=== PATIENT | female | born 1940 | race American Indian/Alaskan Native ===

== ENCOUNTER 2019-12-25 10:05 | Outpatient (CLI) | payer MEDICARE ==
--- NOTE | 2019-12-25 11:43 | XRay Report ---
HISTORY:RIGHT HIP PAIN COMPARISON: None. TECHNIQUE: AP lateral and AP pelvis views were obtained FINDINGS: Bones: No fracture or dislocation. Joint spaces: Severe degenerative changes right hip characterized by complete loss of articular space , sclerosis of the articular surface, remodeling of the femoral head and subchondral cyst formation Soft tissues: No significant abnormality. Additional findings: None. IMPRESSION: 1. Severe degenerative changes right hip Signer Name: Anatoliy Alvarez MD Signed: 12/25/2019 11:38 AM Workstation Name: [id number]
--- NOTE | 2019-12-25 11:44 | XRay Report ---
HISTORY:BILATERAL KNEE PAIN COMPARISON: None. TECHNIQUE: AP both knees views were obtained FINDINGS: Bones: No fracture or dislocation. Joint spaces: Moderate severe narrowing of the femoral tibial articulation on the left and mild to mo derate narrowing of the femoral tibial articulation on the right. Osteophytes are present bilaterally Soft tissues: No significant abnormality. Additional findings: None. IMPRESSION: 1. Degenerative changes both knees as noted. Signer Name: Anatoliy Alvarez MD Signed: 12/25/2019 11:39 AM Workstation Name: [email or web address]
== END 2019-12-25 10:06 | disposition home or self-care (01) ==
LOC: XRAY 10:05
PROVIDERS: ATTEND Orthopaedic Surgery
DX: M16.11 Unilateral primary osteoarthritis, right hip (principal); M17.0 Bilateral primary osteoarthritis of knee; M25.551 Pain in right hip; M25.569 Pain in unspecified knee
CPT/HCPCS: 73565